=== PATIENT | female | born 1995 | race Caucasian/White ===

== ENCOUNTER 2016-12-22 21:49 | Emergency (ER) | payer OTHER ==
[2016-12-22] MEDS ORDERED: ONDANSETRON 4 MG/2 ML VIAL ONE (22:06)
[2016-12-22] MEDS ORDERED: NS 1,000 ML IV ONE (22:11)
[2016-12-22] MEDS ORDERED: ONDANSETRON 4 MG/2 ML VIAL IVP ONE (22:11)
--- NOTE | 2016-12-22 22:19 | EDPHY ---
HPI/HX/ROS/PE/MDM Narrative: CHIEF COMPLAINT: N/V/D, abdominal pain. HPI: The patient is a 21-year-old female who presents with nausea, vomiting, diarrhea, and abdominal pain that began at 1700 tonight, one hour after eating sushi. She denies urinary complaints or other complaints at this time. Abdominal pain is non-radiating. REVIEW OF SYSTEMS: Aside from elements discussed in the HPI, a comprehensive 10-point review of systems was reviewed and is negative. PMH: Denies. 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 PHYSICAL EXAM: General: Patient is alert, in no acute distress. ENT: Eyes are normal to inspection. ENT inspection normal. Neck: Normal inspection. Full range of motion. Respiratory: No respiratory distress. Breath sounds normal bilaterally. Cardiovascular: Regular rate and rhythm. Strong peripheral pulses. Abdomen: The abdomen is nontender to palpation. There are no peritoneal signs. There are normal bowel sounds. Back: Normal to inspection. No tenderness to palpation. Skin: Normal color. No rash. Warm and dry. Extremities: Normal appearance. Full range of motion. Neuro: Oriented x3. Normal motor function. Normal sensory function. Portions of this note were transcribed by an ED scribe. I personally performed the history, physical exam, and medical decision making; and confirm the accuracy of the information in the transcribed note. (Jay Camilo) 12:00 a.m.- I received sign-out on this patient from Dr. Camilo. The patient is feeling much better. She was able to tolerate fluids without difficulty. I have reexamined her abdomen it is soft to palpation. She was not able to provide a stool sample. She will be discharged from the emergency room with friends. She has a flight tomorrow and I have written her a note in the case that she is still feeling unwell. She is agreeable to discharge and I will send her home with Zofran 0 DT. (Sole Winston) ED Course: An IV was established and labs ordered. 1L IV saline and 4mg IV Zofran administered for dehydration and nausea. WBC elevated at 18.03. (Jay Camilo) - Data Points Laboratory Results: Laboratory Results 12/22/16 22:17 12/22/16 22:17 12/22/16 12/22/16 12/22/16 22:17 22:17 22:17 WBC 18.03 10^3/uL H 10^3/uL (3.80-9.50) RBC 5.74 10^6/uL H 10^6/uL (4.18-5.33) Hgb 17.2 g/dL H g/dL (12.6-16.3) Hct 49.2 % H % (38.0-47.0) MCV 85.7 fL fL (81.5-99.8) MCH 30.0 pg pg (27.9-34.1) MCHC 35.0 g/dL g/dL (32.4-36.7) RDW 12.4 % % (11.5-15.2) Plt Count 268 10^3/uL 10^3/uL (150-400) MPV 10.1 fL fL (8.7-11.7) Neut % (Auto) 84.3 % H % (39.3-74.2) Lymph % (Auto) 10.6 % L % (15.0-45.0) Anderson % (Auto) 3.8 % L % (4.5-13.0) Eos % (Auto) 0.4 % L % (0.6-7.6) Baso % (Auto) 0.3 % % (0.3-1.7) Nucleat RBC Rel Count 0.0 % % (0.0-0.2) Absolute Neuts (auto) 15.19 10^3/uL H 10^3/uL (1.70-6.50) Absolute Lymphs (auto) 1.92 10^3/uL 10^3/uL (1.00-3.00) Absolute Monos (auto) 0.69 10^3/uL 10^3/uL (0.30-0.80) Absolute Eos (auto) 0.07 10^3/uL 10^3/uL (0.03-0.40) Absolute Basos (auto) 0.06 10^3/uL 10^3/uL (0.02-0.10) Absolute Nucleated RBC 0.00 10^3/uL 10^3/uL (0-0.01) Immature Gran % 0.6 % % (0.0-1.1) Immature Gran # 0.10 10^3/uL 10^3/uL (0.00-0.10) Sodium 144 mEq/L mEq/L (134-144) Potassium 4.0 mEq/L mEq/L (3.5-5.2) Chloride 106 mEq/L mEq/L (97-110) Carbon Dioxide 18 mEq/l L mEq/l (22-31) Anion Gap 20 mEq/L H mEq/L (8-16) BUN 16 mg/dL mg/dL (7-23) Creatinine 0.8 mg/dL mg/dL (0.6-1.0) Estimated GFR > 60 Glucose 107 mg/dL H mg/dL (70-100) Calcium 10.8 mg/dL H mg/dL (8.5-10.4) Phosphorus 2.7 mg/dL mg/dL (2.5-4.5) Lipase 48.0 IU/L IU/L (23-300) Beta HCG, Qual NEGATIVE Medications Given: Discontinued Medications Sodium Chloride (Ns) 1,000 mls @ 0 mls/hr IV ONCE ONE PRN Reason: Wide Open Stop: 12/22/16 22:12 Last Admin: 12/22/16 22:19 Dose: 1,000 mls Ondansetron HCl (Zofran) 4 mg IVP EDNOW ONE Stop: 12/22/16 22:12 Last Admin: 12/22/16 22:19 Dose: 4 mg Ondansetron HCl (Zofran Odt 4 Mg Prepack#2) 1 btl TAKEHOME EDNOW ONE Stop: 12/22/16 23:53 Last Admin: 12/22/16 23:53 Dose: 1 btl General Time Seen by Provider: 12/22/16 22:06 Initial Vital Signs: Initial Vital Signs Heart Rate 69 12/22/16 21:57 Respiratory Rate 20 12/22/16 21:57 Blood Pressure 124/73 H 12/22/16 21:57 O2 Sat (%) 96 12/22/16 21:57 O2 Delivery Mode Room Air Allergies/Adverse Reactions: No Known Allergies Allergy (Unverified 12/22/16 22:01) Departure - Departure Disposition: Home, Routine, Self-Care Clinical Impression: Nausea and vomiting Qualifiers: Vomiting type: unspecified Vomiting Intractability: non-intractable Qualified Code(s): R11.2 - Nausea with vomiting, unspecified Condition: Good Instructions: Ondansetron (By mouth), Acute Nausea and Vomiting (ED) Additional Instructions: Drink plenty of clear fluids. Advance diet slowly as tolerable over the next 24 hours. Follow up with Nikunj or your PCP if symptoms are not improving in the next 1-2 days. Return to the emergency department for any serious worsening of condition. Referrals: NIKUNJ Hendrix,. [Clinic] - As per Instructions Report Scribed for: Jay Camilo Report Scribed by: Gildardo Escudero Date of Report: 12/22/16 Time of Report: 22:07
[2016-12-22 22:25] LABS: % IMMATURE GRANULYOCYTES 0.6 % (0.0-1.1); ADD DIFF? NO; ADD MORPH? NO; ADD SCAN? NO; ATYPICAL LYMPHOCYTE FLAG 0 (0-99); FRAGMENT RBC FLAG 0 (0-99); HEMATOCRIT 49.2 % (38.0-47.0); HEMOGLOBIN 17.2 g/dL (12.6-16.3); LEFT SHIFT FLG 0 (0-99); LIPEMIA HEMOLYSIS FLAG 90 (0-99); MEAN CELL VOLUME 85.7 fL (81.5-99.8); MEAN PLATELET VOLUME 10.1 fL (8.7-11.7); PLATELET CLUMPS FLAG 10 (0-99); PLATELET COUNT 268 10^3/uL (150-400); RED BLOOD CELL COUNT 5.74 10^6/uL (4.18-5.33); RED CELL DISTRIBUTION WIDTH 12.4 % (11.5-15.2)
[2016-12-22 22:38] LABS: ANION GAP 20 mEq/L (8-16); CALCIUM 10.8 mg/dL (8.5-10.4); CARBON DIOXIDE 18 mEq/l (22-31); CHLORIDE 106 mEq/L (97-110); CREATININE 0.8 mg/dL (0.6-1.0); GLOMERULAR FILTRATION RATE > 60; GLUCOSE 107 mg/dL (70-100); SODIUM 144 mEq/L (134-144)
[2016-12-22] MEDS ORDERED: ONDANSETRON 4MG PREPACK#2 BTL TAKEHOME ONE (23:52)
[2016-12-23 00:12] VITALS: BP 128/71; PULSE 71; RESP 16; TEMP 98.2; O2SAT 97
== END 2016-12-23 00:12 | disposition home or self-care (01) ==
DX: R11.2 Nausea with vomiting, unspecified (principal)
CPT/HCPCS: 96374; J2405